=== PATIENT | male | born 1990 | race Caucasian/White ===

== ENCOUNTER 2017-11-05 14:09 | Emergency (ER) | payer OTHER ==
[2017-11-05 14:27] VITALS: BP 140/85; PULSE 79; TEMP 97; BMI 29.5
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
[2017-11-05] MEDS ORDERED: KETOROLAC TROMETHAMINE 60 MG/2 ML VIAL IM ONE (14:46)
[2017-11-05] MEDS ORDERED: KETOROLAC TROMETHAMINE 60 MG/2 ML VIAL ONE (14:46)
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
== END 2017-11-05 15:37 | disposition home or self-care (01) ==
LOC: JERFT 14:09
PROC: 3E0233Z Introduction of Anti-inflammatory into Muscle, Percutaneous Approach (ICD-10-PCS; principal; 2017-11-05)
DX: S16.1XXA Strain of muscle, fascia and tendon at neck level, initial encounter (principal); V49.3XXA Car occupant (driver) (passenger) injured in unspecified nontraffic accident, initial encounter; Y93.89 Activity, other specified; Y92.410 Unspecified street and highway as the place of occurrence of the external cause
CPT/HCPCS: 71045-TC-FY; 71101-TC-RT-FY; 99281-25